=== PATIENT | female | born 1980 | race Two or more races ===

== ENCOUNTER 2017-02-14 10:48 | Emergency (ER) | payer MEDICAID ==
--- NOTE | ~2017-02-14 | ER ---
PATIENT'S NAME: JOSIAS HESS [facility] AGE: 37 Y [address] ROOM: [place] [address] LOCATION: ED ADMIT DATE: 02/14/2017 ER/Outpatient Report DISCHARGE DATE: 02/14/2017 FAMILY PHYSICIAN: PHYSICIAN, NO ATTENDING PHYSICIAN: Angi Perera Time of Arrival: 1048 hours. Time of Evaluation: 1146 hours. IDENTIFICATION: A 37-year-old female. CHIEF COMPLAINT: Left ear pain. HISTORY OF PRESENT ILLNESS: The patient is a 37-year-old, G7, P6 female at 18 weeks gestation who presents primarily with left ear pain, but she has had weakness during this . She is weak and has had nausea and vomiting, but primarily her big complaint is left ear pain. No fever, but she has been chilled. No other problems or concerns. No cough or shortness of breath. PAST MEDICAL HISTORY: ALLERGIES: NO KNOWN DRUG ALLERGIES. MEDICATIONS: 1. Prednisone 5 mg daily. 2. Tylenol p.r.n. MEDICAL PROBLEMS: Rheumatoid arthritis. PRIOR SURGERIES: Denies. She has had 6 normal vaginal deliveries. SOCIAL HISTORY: The patient lives in [place]. She sees [facility] because she is a high-risk with rheumatoid arthritis, on prednisone. FAMILY HISTORY: No pertinent family history identified. REVIEW OF SYSTEMS: PATIENT'S NAME: JOSIAS HESS [facility] AGE: 37 Y [address] ROOM: [place] [address] LOCATION: [facility] ADMIT DATE: 02/14/2017 ER/Outpatient Report DISCHARGE DATE: 02/14/2017 FAMILY PHYSICIAN: PHYSICIAN, LAURENCE ATTENDING PHYSICIAN: Angi Perera All systems reviewed are negative other than what is noted in the HPI. History was obtained through the [employer] interpreter deaf. PHYSICAL EXAMINATION: VITAL SIGNS: Weight 77.3 kg, blood pressure 111/71, pulse 94, respirations 16, temperature 98.2, and saturations 95% on room air. GENERAL: A 37-year-old female, in no acute distress. HEENT: Normocephalic, atraumatic. Ears: Right TM translucent. Left TM erythematous. It is more in the superior margin. Nose: Mucosa pink, slightly congested. Clear drainage. No sinus tenderness. Mouth: No lesions. Pharynx benign. NECK: Supple. No lymphadenopathy. LUNGS: Clear to auscultation. HEART: Regular rate and rhythm. No murmur, rub, or gallop. ABDOMEN: Intrauterine at 18 weeks' gestation. heart tones 154. No CVA tenderness. NEURO: The patient is alert and oriented x4. Cranial nerves 2 through 12 grossly intact. Motor strength 5/5 throughout. Sensation is intact to light touch. EMERGENCY DEPARTMENT COURSE: The patient was given 1 L of IV fluids and 4 mg of Zofran. A [place] tablet for pain. She was feeling better. UA: Specific gravity 1.020, pH 5.0, 2-5 white cells, 2-5 red cells, 10-20 epithelial cells, few bacteria. Her pain after the [place] was down from a 10 to a 5. Vital signs remained stable. Sodium 142, potassium 3.4, chloride 109, CO2 22, BUN 5, creatinine 0.4, blood sugar 80. Albumin slightly low at 2.8. Liver enzymes are normal. Hemoglobin 11.6, hematocrit 35.4, platelets 220. White count 10.3 with a normal differential. IMPRESSION: 1. Left otitis media. 2. Intrauterine . 3. Nausea and vomiting. PLAN: Amoxicillin 1 g b.i.d. Fluids and rest. Tylenol for pain or fever. She does not have any Tylenol at home or is almost out and requested a prescription. Tylenol 500 mg 1-2 p.o. q.6-8 hours p.r.n. pain, dispensed 20 with 0 refills were prescribed. Follow up at [facility] in 1-2 days and follow up with the primary care physician in 1-2 days. ANGI PERERA MD PATIENT'S NAME: JOSIAS HESS, [facility] AGE: 37 Y [address] ROOM: [place], [place] [address] LOCATION: ED ADMIT DATE: 02/14/2017 ER/Outpatient Report DISCHARGE DATE: 02/14/2017 FAMILY PHYSICIAN: PHYSICIAN, NO ATTENDING PHYSICIAN: Angi Perera CAR/modl /[id number] d: 02/15/1706 t: 02/17/17 1424, OUTPATIENT REPORT
[2017-02-14 12:14] LABS: BASOPHIL % 0.2 %; EOSINOPHIL # 0.1 K/uL (0.0-0.5); EOSINOPHIL % 0.5 %; HEMATOCRIT 35.4 % (33.0-46.0); HEMOGLOBIN 11.6 g/dL (11.0-15.0); IMMATURE GRANULOCYTE # 0.1 K/uL (0.0-0.3); IMMATURE GRANULOCYTE % 0.5 %; LYMPHOCYTE # 1.6 K/uL (0.8-4.0); LYMPHOCYTE % 15.9 %; MCH 29.7 pg (27.0-34.0); MCHC 32.8 gm/dL (32.0-36.5); MCV 90.8 fl (83.0-98.0); MONOCYTE # 0.6 K/uL (0.0-1.0); MONOCYTE % 5.3 %; NEUTROPHIL % 77.6 %; NRBC % 0 /100WBC (0-0.00); PLATELET COUNT 228 K/uL (150-450); RDW-CV 12.9 % (11.9-14.6); WBC 10.3 K/uL (4.0-11.0)
[2017-02-14 12:25] LABS: BILIRUBIN URINE NEGATIVE (NEGATIVE); BLOOD URINE 10 /UL (NEGATIVE); COLOR URINE YELLOW (YELLOW); GLUCOSE URINE NEGATIVE (NEGATIVE); KETONE URINE 150 mg/dL (NEGATIVE); LEUKOCYTES URINE 25 /UL (NEGATIVE); NITRITE URINE NEGATIVE (NEGATIVE); PROTEIN URINE NEGATIVE (NEGATIVE); TURBIDITY URINE CLEAR (CLEAR); UROBILINOGEN URINE NORMAL (NORMAL)
[2017-02-14 12:36] LABS: AMORPHOUS URINE 1+ (NEGATIVE); BACTERIA URINE FEW (NEGATIVE); MUCUS URINE 2+ (NEGATIVE)
[2017-02-14 12:46] LABS: ALBUMIN 2.8 gm/dL (3.5-5.0); ALK PHOS 65 IU/L (33-138); ALT 13 IU/L (12-78); ANION GAP 14.4 (10.0-19.0); AST 12 IU/L (10-40); BLOOD UREA NITROGEN 5 mg/dL (6-24); CALCIUM 8.7 mg/dL (8.5-10.5); CHLORIDE 109 mMol/L (96-110); CO2 22 mMol/L (22-32); CREATININE 0.4 mg/dL (0.5-1.1); ESTIMATED GFR (MDRD EQUATION) > 60; POTASSIUM 3.4 mMol/L (3.7-5.1); SODIUM 142 mMol/L (135-145); TOTAL BILIRUBIN 0.6 mg/dL (0.0-1.5); TOTAL PROTEIN 7.3 g/dL (6.0-8.4)
== END 2017-02-14 14:21 | disposition disaster alternative care site (69) ==
LOC: GMED 10:48
PROVIDERS: Family Medicine
DX: O09.522 Supervision of elderly multigravida, second trimester (principal); O99.89 Other specified diseases and conditions complicating pregnancy, childbirth and the puerperium; H66.92 Otitis media, unspecified, left ear; M06.9 Rheumatoid arthritis, unspecified; O21.9 Vomiting of pregnancy, unspecified; Z3A.18 18 weeks gestation of pregnancy; Z79.899 Other long term (current) drug therapy
CPT/HCPCS: J2405; J7030

== ENCOUNTER → 2017-03-14 | Outpatient (CLI) | payer MEDICAID ==
[~2017-03-14] MED LIST: DELTASONE5 MG PO; GLYNASE PO; MOTRIN800 MG PO; PERCOCET 5-3251 EACH PO; PRENATAL 1+1)(P1 TAB PO; SURFAK240 MG PO
== END | disposition disaster alternative care site (69) ==
LOC: GLAB 07:27
DX: Z36 Encounter for antenatal screening of mother (principal)

== ENCOUNTER 2017-07-09 08:45 | Inpatient (IN) | payer MEDICAID ==
[~2017-07-09] VITALS: Ht 147.3 cm; Wt 82.0 kg
--- NOTE | ~2017-07-09 | OR ---
PATIENT'S NAME: JOSIAS HESS [facility] AGE: 37 Y [address] ROOM: [place] [address] LOCATION: [facility] ADMIT DATE: 07/09/2017 OR/Procedure Report DISCHARGE DATE: FAMILY PHYSICIAN: PHYSICIAN, NO ATTENDING PHYSICIAN: DARLENE MOCTEZUMA SURGEON: Darlene Moctezuma MD CORPORATE PHYSICAL SECURITY SUPERVISOR: DATE OF PROCEDURE: 07/09/2017 PROCEDURE PERFORMED: Spontaneous vaginal delivery over intact perineum. PREDELIVERY DIAGNOSES: 1. Intrauterine at 39 weeks and 5 days. 2. Advanced maternal age. 3. Rheumatoid arthritis. 4. Gestational diabetes class A2. 5. History of premature rupture of membranes and previous . ESTIMATED BLOOD LOSS: 400 mL. SPECIMENS: Cord pH, cord blood, and placenta. FINDINGS: Viable female , weight of 5 pounds and 15 ounces. score 8 and 9. Intact placenta with 3-vessel cord. No cervical, vaginal, or perineal lacerations. COMPLICATIONS: The patient had an increased amount of free flow at the end of delivery and was given a dose of Methergine and 800 rectal Cytotec in addition to her IV Pitocin. The patient remained in her room and appeared to be in stable condition. INDICATIONS FOR THE PROCEDURE: The patient is a 37-year-old, G7, P5-1-0-6, who presented for scheduled induction of labor at 39 weeks and 5 days secondary to gestational diabetes class A2. The patient also had a history of a previous delivery; history of rheumatoid arthritis, for which she is on 5 mg of prednisone daily; advanced maternal age; and grand multiparity. The patient was 3 cm dilated on presentation and AROM was performed with clear fluid. She was started on IV Pitocin. Labor course was protracted until the patient reached 5 cm. She then rapidly progressed to complete. DESCRIPTION OF PROCEDURE: The patient was placed in dorsal lithotomy position with legs in stirrups. She was prepped in the usual sterile fashion. With maternal expulsive efforts, head delivered and was allowed to restitute. Nuchal cord was noted, but was unable to be reduced. With the assistance of gentle downward and upward traction and maternal expulsive efforts, 's PATIENT'S NAME: JOSIAS HESS [facility] AGE: 37 Y [address] ROOM: [address] [address] LOCATION: [facility] ADMIT DATE: 07/09/2017 OR/Procedure Report DISCHARGE DATE: FAMILY PHYSICIAN: PHYSICIAN, NO ATTENDING PHYSICIAN: DARLENE MOCTEZUMA shoulders delivered followed by the remainder of the body. Cord was clamped and cut, and the infant was handed off to the waiting nurse. Cord blood was obtained. IV Pitocin was started per protocol. Gentle downward traction was placed on the umbilical cord and placenta delivered soon thereafter and appeared to be intact. Cervix, vagina, and perineum were inspected with no lacerations noted. The patient was noted to have an increased amount of free flow and bimanual massage was performed and lower uterine segment was cleared of clots. Continued massage was performed. The patient continued to have occasional gushes of bleeding and was given a dose of IM Methergine and 800 rectal Cytotec. Bimanual massage again was completed and the patient had improvement in her free flow and was felt to be stable at that point in time. All needle, sponge, and instrument counts were noted to be correct x2. The patient remained in the room with her infant. MD ALIZA MARTINEZ/rubén /[id number] d: 07/10/17 0002 t: 07/19/1730, OPERATIVE SUMMARY
[2017-07-09] MEDS ORDERED: DELTASONE5 MG PO (09:50)
[2017-07-09] MEDS ORDERED: GLYNASE PO ×3 (09:52→10:19)
[2017-07-09 09:54] LABS: BASOPHIL % 0.1 %; EOSINOPHIL # 0.1 K/uL (0.0-0.5); EOSINOPHIL % 0.8 %; HEMATOCRIT 35.4 % (33.0-46.0); HEMOGLOBIN 11.9 g/dL (11.0-15.0); IMMATURE GRANULOCYTE % 0.3 %; LYMPHOCYTE % 27.5 %; MCH 28.8 pg (27.0-34.0); MCHC 33.6 gm/dL (32.0-36.5); MCV 85.7 fl (83.0-98.0); MONOCYTE # 0.3 K/uL (0.0-1.0); MONOCYTE % 4.4 %; MPV 11.3 fl (9.4-12.4); NEUTROPHIL # (ANC) 4.9 K/uL (1.8-7.8); NEUTROPHIL % 66.9 %; NRBC % 0 /100WBC (0-0.00); PLATELET COUNT 191 K/uL (150-450); RBC 4.13 M/uL (3.50-5.50); RDW-CV 14.8 % (11.9-14.6); WBC 7.3 K/uL (4.0-11.0)
[2017-07-09] MEDS ORDERED: PRENATAL 1+1)(P1 TAB PO (10:00)
[2017-07-10 04:59] LABS: BASOPHIL % 0.2 %; EOSINOPHIL # 0.1 K/uL (0.0-0.5); EOSINOPHIL % 1.2 %; HEMATOCRIT 30.1 % (33.0-46.0); HEMOGLOBIN 10.1 g/dL (11.0-15.0); IMMATURE GRANULOCYTE % 0.3 %; LYMPHOCYTE # 1.7 K/uL (0.8-4.0); LYMPHOCYTE % 18.9 %; MCH 28.7 pg (27.0-34.0); MCHC 33.6 gm/dL (32.0-36.5); MCV 85.5 fl (83.0-98.0); MONOCYTE # 0.6 K/uL (0.0-1.0); MPV 11.6 fl (9.4-12.4); NEUTROPHIL # (ANC) 6.7 K/uL (1.8-7.8); NEUTROPHIL % 73.4 %; NRBC % 0 /100WBC (0-0.00); RBC 3.52 M/uL (3.50-5.50); RDW-CV 14.9 % (11.9-14.6); WBC 9.2 K/uL (4.0-11.0)
[2017-07-10 05:03] LABS: PLATELET COUNT 135 K/uL (150-450)
--- NOTE | 2017-07-11 05:25 | NUR ---
vss, fundus firm, 1 down, scant flow, IV out, accucheck 97, Motrin and 1 Perc at 0153, needs TDaP ordered, needs a followup appt made with Dr. Barrios
[2017-07-11] MEDS ORDERED: SURFAK240 MG PO (11:13)
[2017-07-11] MEDS ORDERED: PERCOCET 5-3251 EACH PO (11:14)
[2017-07-11] MEDS ORDERED: MOTRIN800 MG PO (11:14)
== END 2017-07-11 13:05 | disposition disaster alternative care site (69) | DRG 775 ==
LOC: GOBS 08:45 → GOBM 08:45 → GOBS 08:46 → GOBM 08:46 → GOBS 07-11 13:05
PROVIDERS: ADMIT Obstetrics & Gynecology
PROC: 10E0XZZ Delivery of Products of Conception, External Approach (ICD-10-PCS; principal; 2017-07-09)
DX: O24.429 Gestational diabetes mellitus in childbirth, unspecified control (principal); O09.213 Supervision of pregnancy with history of pre-term labor, third trimester; O09.523 Supervision of elderly multigravida, third trimester; Z3A.39 39 weeks gestation of pregnancy; Z37.0 Single live birth; M06.9 Rheumatoid arthritis, unspecified; O75.89 Other specified complications of labor and delivery
CPT/HCPCS: J2001; J2210; J2590; J3010; J7120; J7512